=== PATIENT | female | born 1970 | race Caucasian/White ===

== ENCOUNTER 2016-05-25 15:50 | Emergency (ER) | payer BC, OTHER ==
[2016-05-25] MEDS ORDERED: ASPIRIN 81 MG CHEWABLE TABLET PO ONE (16:08)
[2016-05-25] MEDS ORDERED: 0.9 % SODIUM CHLORIDE 1000ML 1,000 ML IV PRN (16:08)
[2016-05-25 16:28] LABS: BASO % 0.5 % (0-6); EOS % 0.8 % (0-6); GRAN % 44.5 % (47-80); HEMATOCRIT 42.8 % (35.0-47.0); HEMOGLOBIN 14.6 gm/dl (11.6-16.0); LYMPH % 44.4 % (16-45); MEAN CELL VOLUME 96.4 fl (81-97); MEAN CORPUSCULAR HEMOGLOBIN 32.9 pg (27-33); MEAN CORPUSCULAR HGB CONC 34.1 g/dl (32-36); MONO % 9.8 % (0-9); PLATELET COUNT 225 K/uL (130-400); RED BLOOD COUNT 4.44 M/uL (3.80-5.40); RED CELL DISTRIBUTION WIDTH 13.4 % (11.5-14.5); WHITE BLOOD COUNT W/O DIFF 7.6 K/uL (4.2-12.2)
[2016-05-25 16:42] LABS: ANION GAP 13.7 (7-16); BLOOD UREA NITROGEN 9 mg/dL (7-17); CARBON DIOXIDE 25.3 mmol/L (22-30); CREATININE 0.8 mg/dL (0.52-1.04); EST GLOMERULAR FILTRATION RATE > 60 ml/min; GLUCOSE,RANDOM 83 mg/dL (70-110)
--- NOTE | 2016-05-25 16:56 | Emergency Department Record ---
History of Present Illness - General Chief Complaint: Chest Pain Stated Complaint: TIGHTNESS IN CHEST AND BACK OF LEGS ARE PURPLE Time Seen by Provider: 05/25/16 16:07 Mode of Arrival: Ambulatory - History of Present Illness Initial Comments: heaviness in her chest comes and goes for 2 days and discoloration of the back of the legs. Pulses in her legs are good and and she has dermography of the posterior legs. Under stress because released from correction. Complaint: Chest pain Onset/Timin -: Week(s) Pain Location: Other Pain Radiation: RUE, LUE Quality: Tightness Consistency: Intermittent Improves With: Nothing Worsens With: Nothing - Related Data Home Medications Medication Instructions Recorded Confirmed Last Taken No Home Med [NO HOME MEDS] 05/25/16 05/25/16 Unknown Allergies Allergy/AdvReac Type Severity Reaction Status Date / Time No Known Drug Allergies Allergy Verified 05/25/16 16:07 Travel Screening - Travel/Exposure Within Last 30 Days Have you traveled within the last 30 days?: No - Travel/Exposure Within Last Year Have you traveled outside the [place] in the last year?: No - Additonal Travel Details Have you been exposed to anyone with a communicable illness?: No - Travel Symptoms Symptom Screening: None Review of Systems Reviewed: No additional complaints except as noted below Constitutional: Reports: As per HPI. Denies: Chills, Fever, Malaise, Night sweats, Weakness, Weight change Eyes: Reports: As per HPI. Denies: Eye discharge, Eye pain, Photophobia, Vision change ENT: Reports: As per HPI. Denies: Congestion, Dental pain, Ear pain, Epistaxis , Hearing loss, Throat pain Respiratory: Reports: As per HPI. Denies: Cough, Dyspnea, Hemoptysis, Stridor, Wheezes Cardiovascular: Reports: As per HPI. Denies: Arrhythmia, Chest pain, Dyspnea on exertion, Edema, Murmurs, Orthopnea, Palpitations, Paroxysmal nocturnal dyspnea, Rheumatic Fever, Syncope Endocrine: Reports: As per HPI. Denies: Fatigue, Heat or cold intolerance, Polydipsia, Polyuria Gastrointestinal: Reports: As per HPI. Denies: Abdominal pain, Constipation, Diarrhea, Hematemesis, Hematochezia, Melena, Nausea, Vomiting Genitourinary: Reports: As per HPI. Denies: Abnormal menses, Discharge, Dyspareunia, Dysuria, Frequency, Hematuria, Incontinence, Retention, Urgency Musculoskeletal: Reports: As per HPI. Denies: Arthralgia, Back pain, Gout, Joint swelling, Myalgia, Neck pain Skin: Reports: As per HPI. Denies: Bruising, Change in color, Change in hair/ nails, Lesions, Pruritus, Rash Neurological: Reports: As per HPI. Denies: Abnormal gait, Confusion, Headache, Numbness, Paresthesias, Seizure, Tingling, Tremors, Vertigo, Weakness Psychiatric: Reports: As per HPI. Denies: Anxiety, Auditory hallucinations, Depression, Homicidal thoughts, Suicidal thoughts, Visual hallucinations Hematological/Lymphatic: Reports: As per HPI. Denies: Anemia, Blood Clots, Easy bleeding, Easy bruising, Swollen glands Past Medical History - SOCIAL HISTORY Smoking Status: Current every day smoker Alcohol Use: None Drug Use: Occassional Drug Use Detail:: Marijuana - RESPIRATORY Hx Respiratory Disorders: No - CARDIOVASCULAR Hx Cardio Disorders: No - NEURO Hx Neuro Disorders: No - GI Hx GI Disorders: No - Hx Genitourinary Disorders: No - ENDOCRINE Hx Endocrine Disorders: No - MUSCULOSKELETAL Hx Musculoskeletal Disorders: No - PSYCH Hx Psych Problems: Yes Hx Depression: Yes - HEMATOLOGY/ONCOLOGY Hx Hematology/Oncology Disorders: No Family Medical History Any Significant Family History?: No Physical Exam - General General Appearance: Alert, Oriented x3, Cooperative, No acute distress - Head Head exam: Normal inspection - Eye Eye exam: Normal appearance, PERRL Pupils: Normal accommodation - ENT ENT exam: Normal exam, Mucous membranes moist, Normal external ear exam, Normal orophraynx, TM's normal bilaterally Ear exam: Normal external inspection. negative: External canal tenderness Nasal Exam: Normal inspection. negative: Discharge, Sinus tenderness Mouth exam: Normal external inspection, Tongue normal Teeth exam: Normal inspection. negative: Dental caries Throat exam: Normal inspection. negative: Tonsillar erythema, Tonsillar exudate - Neck Neck exam: Normal inspection, Full ROM. negative: Tenderness - Respiratory Respiratory exam: Normal lung sounds bilaterally. negative: Respiratory distress - Cardiovascular Cardiovascular Exam: Regular rate, Normal rhythm, Normal heart sounds - GI/Abdominal GI/Abdominal exam: Soft, Normal bowel sounds. negative: Tenderness - Rectal Rectal exam: Deferred - exam: Deferred - Extremities Extremities exam: Normal inspection, Full ROM, Normal capillary refill. negative: Tenderness - Back Back exam: Reports: Normal inspection, Full ROM. Denies: Muscle spasm, Rash noted, Tenderness - Neurological Neurological exam: Alert, Normal gait, Oriented X3, Reflexes normal - Psychiatric Psychiatric exam: Normal affect, Normal mood - Skin Skin exam: Dry, Intact, Normal color, Warm Course Vital Signs 05/25/16 16:08 Temperature 97.7 F Pulse Rate 87 Respiratory 20 Rate Blood Pressure 126/86 Pulse Ox 99 - Reevaluation(s) Reevaluation #1: recommended patient to be transfered to [facility] for cardiology for evaluate and see refused. Advise could and she said no so will have her sign out AMA. Currently no chest pain. Second plan to stay here and she said no. Follow up with Dr. Lovell and he could set up outpatient testing for stress test and venous and arterial dopler of ther legs 05/25/16 17:27 Reevaluation #2: No chest pain now. 05/25/16 17:32 Medical Decision Making - Data Complexity MDM Data: Labs Ordered and/or Reviewed (cardiac labs neg), X-Ray Ordered and/or Reviewed (NSR, No acute changes ) - Lab Data Result diagrams: 05/25/16 16:15 05/25/16 16:15 Lab Results 05/25/16 05/25/16 05/25/16 Range/Units 16:15 16:15 16:15 WBC 7.6 (4.2-12.2) K/uL RBC 4.44 (3.80-5.40) M/uL Hgb 14.6 (11.6-16.0) gm/dl Hct 42.8 (35.0-47.0) % MCV 96.4 (81-97) fl MCH 32.9 (27-33) pg MCHC 34.1 (32-36) g/dl RDW 13.4 (11.5-14.5) % Plt Count 225 (130-400) K/uL MPV 10.0 (7.4-10.4) fl Gran % 44.5 L (47-80) % Lymphocytes % 44.4 (16-45) % Monocytes % 9.8 H (0-9) % Eosinophils % 0.8 (0-6) % Basophils % 0.5 (0-6) % PTT 28.00 (24.5-39.1) SECONDS Sodium 142 (136-145) mmol/L Potassium 4.0 (3.5-5.1) mmol/L Chloride 103 (98-107) mmol/L Carbon Dioxide 25.3 (22-30) mmol/L Anion Gap 13.7 (7-16) BUN 9 (7-17) mg/dL Creatinine 0.8 (0.52-1.04) mg/dL Estimated GFR > 60 ml/min Random Glucose 83 (70-110) mg/dL Calcium 8.8 (8.5-10.1) mg/dL Disposition Clinical Impression: Angina effort, Dermographia Chest pain Qualifiers: Chest pain type: unspecified Qualified Code(s): R07.9 - Chest pain, unspecified Disposition: Home, Self-Care Condition: (2) Stable Instructions: Angina (ED) Additional Instructions: follow up with Dr. Lovell tomorrow . return to ED if worse. tylenol or motrin for pain Forms: Patient Portal Access Time of Disposition: 17:33
[2016-05-25 16:57] LABS: CKMB 0.5 ug/L (0-6)
[2016-05-25 17:02] LABS: TROPONIN I < 0.012 ng/mL (0.00-0.034)
--- NOTE | 2016-05-25 18:39 | Emergency Department Record ---
History of Present Illness - General Chief Complaint: Chest Pain Stated Complaint: TIGHTNESS IN CHEST AND BACK OF LEGS ARE PURPLE Time Seen by Provider: 05/25/16 16:07 Mode of Arrival: Ambulatory - History of Present Illness Onset/Timin -: Week(s) Pain Location: Other Pain Radiation: RUE, LUE Quality: Tightness Consistency: Intermittent Improves With: Nothing Worsens With: Nothing - Related Data Home Medications Medication Instructions Recorded Confirmed Last Taken No Home Med [NO HOME MEDS] 05/25/16 05/25/16 Unknown Allergies Allergy/AdvReac Type Severity Reaction Status Date / Time No Known Drug Allergies Allergy Verified 05/25/16 16:07 Travel Screening - Travel/Exposure Within Last 30 Days Have you traveled within the last 30 days?: No - Travel/Exposure Within Last Year Have you traveled outside the [place] in the last year?: No - Additonal Travel Details Have you been exposed to anyone with a communicable illness?: No - Travel Symptoms Symptom Screening: None Review of Systems Constitutional: Reports: As per HPI. Denies: Chills, Fever, Malaise, Night sweats, Weakness, Weight change Eyes: Reports: As per HPI. Denies: Eye discharge, Eye pain, Photophobia, Vision change ENT: Reports: As per HPI. Denies: Congestion, Dental pain, Ear pain, Epistaxis , Hearing loss, Throat pain Respiratory: Reports: As per HPI. Denies: Cough, Dyspnea, Hemoptysis, Stridor, Wheezes Cardiovascular: Reports: As per HPI. Denies: Arrhythmia, Chest pain, Dyspnea on exertion, Edema, Murmurs, Orthopnea, Palpitations, Paroxysmal nocturnal dyspnea, Rheumatic Fever, Syncope Endocrine: Reports: As per HPI. Denies: Fatigue, Heat or cold intolerance, Polydipsia, Polyuria Gastrointestinal: Reports: As per HPI. Denies: Abdominal pain, Constipation, Diarrhea, Hematemesis, Hematochezia, Melena, Nausea, Vomiting Genitourinary: Reports: As per HPI. Denies: Abnormal menses, Discharge, Dyspareunia, Dysuria, Frequency, Hematuria, Incontinence, Retention, Urgency Musculoskeletal: Reports: As per HPI. Denies: Arthralgia, Back pain, Gout, Joint swelling, Myalgia, Neck pain Skin: Reports: As per HPI. Denies: Bruising, Change in color, Change in hair/ nails, Lesions, Pruritus, Rash Neurological: Reports: As per HPI. Denies: Abnormal gait, Confusion, Headache, Numbness, Paresthesias, Seizure, Tingling, Tremors, Vertigo, Weakness Psychiatric: Reports: As per HPI. Denies: Anxiety, Auditory hallucinations, Depression, Homicidal thoughts, Suicidal thoughts, Visual hallucinations Hematological/Lymphatic: Reports: As per HPI. Denies: Anemia, Blood Clots, Easy bleeding, Easy bruising, Swollen glands Past Medical History - SOCIAL HISTORY Smoking Status: Current every day smoker Alcohol Use: None Drug Use: Occassional Drug Use Detail:: Marijuana - RESPIRATORY Hx Respiratory Disorders: No - CARDIOVASCULAR Hx Cardio Disorders: No - NEURO Hx Neuro Disorders: No - GI Hx GI Disorders: No - Hx Genitourinary Disorders: No - ENDOCRINE Hx Endocrine Disorders: No - MUSCULOSKELETAL Hx Musculoskeletal Disorders: No - PSYCH Hx Psych Problems: Yes Hx Depression: Yes - HEMATOLOGY/ONCOLOGY Hx Hematology/Oncology Disorders: No Family Medical History Any Significant Family History?: No Course Vital Signs 05/25/16 05/25/16 05/25/16 16:08 17:07 18:09 Temperature 97.7 F 98.2 F Pulse Rate 87 Pulse Rate [ 72 78 Pulse Ox Probe] Respiratory 20 20 18 Rate Blood Pressure 126/86 Blood Pressure 107/61 111/67 [Right Arm] Pulse Ox 99 98 99 - Reevaluation(s) Reevaluation #1: patient upset I could not tell her more about her legs and I explained to her she needs a venous dopler and arterial doplers for further evaluation of her legs and those tests are not available at this hospital now. Patient upset and now wants to see another doctor and Dr. Polanco is coming in for evaluation so patient is reregistering for another evaluation. 05/25/16 18:33 05/25/16 18:39 Medical Decision Making - Lab Data Result diagrams: 05/25/16 16:15 05/25/16 16:15 Lab Results 05/25/16 05/25/16 05/25/16 Range/Units 16:15 16:15 16:15 WBC 7.6 (4.2-12.2) K/uL RBC 4.44 (3.80-5.40) M/uL Hgb 14.6 (11.6-16.0) gm/dl Hct 42.8 (35.0-47.0) % MCV 96.4 (81-97) fl MCH 32.9 (27-33) pg MCHC 34.1 (32-36) g/dl RDW 13.4 (11.5-14.5) % Plt Count 225 (130-400) K/uL MPV 10.0 (7.4-10.4) fl Gran % 44.5 L (47-80) % Lymphocytes % 44.4 (16-45) % Monocytes % 9.8 H (0-9) % Eosinophils % 0.8 (0-6) % Basophils % 0.5 (0-6) % PTT 28.00 (24.5-39.1) SECONDS Sodium 142 (136-145) mmol/L Potassium 4.0 (3.5-5.1) mmol/L Chloride 103 (98-107) mmol/L Carbon Dioxide 25.3 (22-30) mmol/L Anion Gap 13.7 (7-16) BUN 9 (7-17) mg/dL Creatinine 0.8 (0.52-1.04) mg/dL Estimated GFR > 60 ml/min Random Glucose 83 (70-110) mg/dL Calcium 8.8 (8.5-10.1) mg/dL CK-MB (CK-2) 0.5 (0-6) ug/L Troponin I < 0.012 (0.00-0.034) ng/mL Disposition Clinical Impression: Angina effort, Dermographia Chest pain Qualifiers: Chest pain type: unspecified Qualified Code(s): R07.9 - Chest pain, unspecified Disposition: Home, Self-Care Condition: (2) Stable Instructions: Angina (ED) Additional Instructions: follow up with Dr. Lovell tomorrow . return to ED if worse. tylenol or motrin for pain Forms: Patient Portal Access
== END 2016-05-25 18:40 | disposition home or self-care (01) ==
LOC: ER 15:50
DX: I20.9 Angina pectoris, unspecified (principal); L50.3 Dermatographic urticaria; F17.210 Nicotine dependence, cigarettes, uncomplicated
CPT/HCPCS: 80048; 82553; 84484; 85025; 85730; 93005; 93010; 99284

== ENCOUNTER 2017-03-24 17:14 | Emergency (ER) | payer SELFPAY ==
[2017-03-24] MEDS ORDERED: DIAZEPAM 5 MG/1 ML TUBX IM ONE (18:43)
[2017-03-24] MEDS ORDERED: HYDROMORPHONE HCL 1 MG/ML SYRINGE IM ONE (18:43)
--- NOTE | 2017-03-24 18:43 | Emergency Department Record ---
History of Present Illness - General Chief complaint: Pain Stated complaint: PAIN IN HIP AND RT LEG Time Seen by Provider: 03/24/17 17:42 Source: Patient Mode of Arrival: Ambulatory Limitations: No limitations - History of Present Illness Initial comments: 46 yo female presents to ED for evaluation of right sided low back pain that radiates down her right lower extremity that began 4-5 days ago. Patient denies injury, twisting, or heavy lifting that m,ay have resulted in her pain symptoms. Patient does however report similar symptoms previously, reports that she has not taken anything for her pain symptoms since her pain symptoms began stating "I'm not a pill popper". Patient denies weakness, numbness over the groin region, or urinary retention symptoms. MD Complaint: Other Onset/Timin -: Days(s) Location: Right, Lower Leg, Other History of Same: Yes Radiation: Proximal Severity scale (1-10): 10 Quality: Aching Consistency: Constant Improves with: Nothing Worsens with: Nothing Associated Symptoms: Denies other symptoms - Related Data Previous Rx's Medication Instructions Recorded Diazepam [Valium] 5 mg PO Q8H PRN #15 03/24/17 Naproxen [Naprosyn] 500 mg PO Q12H #30 tab. 03/24/17 Allergies Allergy/AdvReac Type Severity Reaction Status Date / Time No Known Drug Allergies Allergy Verified 03/24/17 17:52 Travel Screening - Travel/Exposure Within Last 30 Days Have you traveled within the last 30 days?: No Review of Systems Constitutional: Denies: Chills, Fever, Malaise, Night sweats Eyes: Denies: Eye discharge, Eye pain ENT: Denies: Congestion, Ear pain, Epistaxis Respiratory: Denies: Cough, Dyspnea Cardiovascular: Denies: Chest pain, Dyspnea on exertion Endocrine: Denies: Fatigue, Heat or cold intolerance Gastrointestinal: Denies: Abdominal pain, Nausea, Vomiting Genitourinary: Denies: Incontinence, Retention Musculoskeletal: Reports: Back pain. Denies: Gout, Joint swelling Skin: Denies: Bruising, Change in color, Change in hair/nails Neurological: Denies: Abnormal gait, Confusion, Headache, Tingling Psychiatric: Denies: Anxiety Hematological/Lymphatic: Denies: Anemia, Blood Clots Past Medical History - SOCIAL HISTORY Smoking Status: Current every day smoker Alcohol Use: None Drug Use: None - RESPIRATORY Hx Respiratory Disorders: No - CARDIOVASCULAR Hx Cardio Disorders: No - NEURO Hx Neuro Disorders: No - GI Hx GI Disorders: No - Hx Genitourinary Disorders: No - ENDOCRINE Hx Endocrine Disorders: No - MUSCULOSKELETAL Hx Musculoskeletal Disorders: Yes - PSYCH Hx Psych Problems: Yes Hx Depression: Yes - HEMATOLOGY/ONCOLOGY Hx Hematology/Oncology Disorders: No Family Medical History Any Significant Family History?: No Physical Exam - General General Appearance: Alert, Oriented x3, Cooperative, Moderate distress, Other ( tearful on examination) Limitations: No limitations - Head Head exam: Atraumatic, Normocephalic, Normal inspection Head exam detail: negative: Abrasion, Contusion, Marshall's sign, General tenderness, Hematoma, Laceration - Eye Eye exam: Normal appearance. negative: Conjunctival injection, Periorbital swelling, Periorbital tenderness, Scleral icterus - ENT Ear exam: negative: Auricular hematoma, Auricular trauma Nasal Exam: negative: Active bleeding, Discharge, Dried blood, Foreign body Mouth exam: negative: Drooling, Laceration, Muffled voice, Tongue elevation - Neck Neck exam: Normal inspection. negative: Meningismus, Tenderness - Respiratory Respiratory exam: Normal lung sounds bilaterally. negative: Respiratory distress, Rhonchi, Stridor, Wheezes - Cardiovascular Cardiovascular Exam: Regular rate, Normal rhythm, Normal heart sounds - Rectal Rectal exam: Deferred - exam: Deferred - Extremities Extremities exam: Normal inspection. negative: Pedal edema, Tenderness - Back Back exam: Denies: CVA tenderness (R), CVA tenderness (L), Paraspinal tenderness , Rash noted - Neurological Neurological exam: Alert, Oriented X3, Other (Patient has limited right lower extremity effort due to worsening of her back pain symptoms.). negative: Motor sensory deficit - Psychiatric Psychiatric exam: Normal affect, Normal mood - Skin Skin exam: Normal color. negative: Abrasion Type of lesion: negative: abrasion Course Vital Signs 03/24/17 17:50 Temperature 98.1 F Pulse Rate 97 H Respiratory 16 Rate Blood Pressure 132/77 Pulse Ox 98 - Reevaluation(s) Reevaluation #1: 03/24/17 18:49 MDM: On examination, the patient has no clinical evidence for spinal cord compression syndrome, reports a history of previous symptoms, denies recent injury, and patient is < 50 years of age. Images are not felt to be of benefit as a result. Will treat the patient symptomatically with Valium and Naprosyn as she has not taken anything at home for her symptoms over the past 5 days with instructions for follow-up with Dr. Lovell in 3-5 days as directed. Patient agrees with the plan as discussed. Reevaluation #2: 03/24/17 19:20 Patient reports improvement in her pain symptoms, ambulated from ED with steady gait and appears stable for discharge at this time. Disposition Disposition: Discharge Clinical Impression: Sciatica Qualifiers: Laterality: right Qualified Code(s): M54.31 - Sciatica, right side Disposition: Home, Self-Care Condition: (2) Stable Instructions: Sciatica (ED) Additional Instructions: Return to ED if your symptoms worsen or if you have any concerns. Valium and Naprosyn as directed. Follow-up with Dr. Lovell in 3-5 days as directed. Prescriptions: Diazepam [Valium] 5 mg PO Q8H PRN #15 PRN Reason: Pain - Moderate (5-7) Naproxen [Naprosyn] 500 mg PO Q12H #30 tab.dr Forms: Patient Portal Access Time of Disposition: 18:43 Quality - Quality Measures Quality Measures: N/A - Blood Pressure Screening Does Patient Have Any of the Following: No Blood Pressure Classification: Pre-Hypertensive BP Reading Systolic Measurement: 132 Diastolic Measurement: 77 Screening for High Blood Pressure: < Pre-Hypertensive BP, F/U Documented > [ G8950] Pre-Hypertensive Follow-up Interventions: Referral to alternative/primary care provider.
== END 2017-03-24 19:22 | disposition home or self-care (01) ==
LOC: ER 17:14
DX: M54.41 Lumbago with sciatica, right side (principal); M25.551 Pain in right hip
CPT/HCPCS: 99283 ×2; 96372; J1170; J3360

== ENCOUNTER 2018-09-13 14:28 | Emergency (ER) | payer SELFPAY ==
[2018-09-13] MEDS ORDERED: KETOROLAC 60 MG/2 ML VIAL IM STA (14:46)
--- NOTE | 2018-09-13 14:46 | Emergency Department Record ---
History of Present Illness - General Chief Complaint: Back Pain/Injury Stated Complaint: LOWER BACK PAIN Time Seen by Provider: 09/13/18 14:39 Source: Patient Mode of Arrival: Ambulatory Limitations: No limitations - History of Present Illness Initial Comments: 47 yo female presents with back pain. The pain is on the right lower into the buttocks and down the leg. No weakness, numbness or tingling. NO bowel or bladder dysfunction. She denies significant trauma. It started getting dressed. She had similar symptoms 8 months ago that lasted a week. No fevers. MD Complaint: Back pain -: Days(s) (2) Similar Symptoms Previously: Yes Place: Home Radiation: Right leg Quality: Sharp Consistency: Constant Improves With: Immobilization Worsens With: Movement, Walking Context: Bending Associated Symptoms: Denies other symptoms - Related Data Previous Rx's Medication Instructions Recorded Diazepam [Valium] 5 mg PO Q8H #12 tab 09/13/18 Methylprednisolone [Medrol Dose 4 mg PO DAILY #1 tab.ds.pk 09/13/18 Pack] Naproxen [Naprosyn] 500 mg PO BID #30 tablet 09/13/18 Allergies Allergy/AdvReac Type Severity Reaction Status Date / Time No Known Drug Allergies Allergy Verified 09/13/18 14:40 Review of Systems Constitutional: Denies: Chills, Fever, Malaise, Weakness Eyes: Denies: Eye discharge ENT: Denies: Congestion, Throat pain Respiratory: Denies: Cough, Dyspnea Cardiovascular: Denies: Chest pain, Palpitations, Syncope Endocrine: Denies: Fatigue Gastrointestinal: Denies: Abdominal pain, Constipation, Diarrhea, Nausea, Vomiting Genitourinary: Denies: Dysuria, Frequency, Incontinence, Retention, Urgency Musculoskeletal: Reports: Back pain, Myalgia Skin: Denies: Bruising, Change in color, Rash Neurological: Denies: Abnormal gait, Numbness, Paresthesias, Tingling, Tremors, Weakness Psychiatric: Denies: Anxiety Hematological/Lymphatic: Denies: Easy bleeding, Easy bruising Past Medical History - SOCIAL HISTORY Smoking Status: Current every day smoker Drug Use: None - RESPIRATORY Hx Respiratory Disorders: No - CARDIOVASCULAR Hx Cardio Disorders: No - NEURO Hx Neuro Disorders: No - GI Hx GI Disorders: No - Hx Genitourinary Disorders: No - ENDOCRINE Hx Endocrine Disorders: No - MUSCULOSKELETAL Hx Musculoskeletal Disorders: Yes - PSYCH Hx Psych Problems: Yes Hx Depression: Yes - HEMATOLOGY/ONCOLOGY Hx Hematology/Oncology Disorders: No Physical Exam - General General Appearance: Alert, Oriented x3, Cooperative, No acute distress Limitations: No limitations - Head Head exam: Atraumatic, Normal inspection - Eye Eye exam: Normal appearance. negative: Conjunctival injection - ENT ENT exam: Normal exam Ear exam: Normal external inspection Nasal Exam: Normal inspection Mouth exam: Normal external inspection - Neck Neck exam: Normal inspection - GI/Abdominal GI/Abdominal exam: Soft. negative: Tenderness - Rectal Rectal exam: Deferred - exam: Deferred - Extremities Extremities exam: Normal inspection, Full ROM, Normal capillary refill, Other (tender right glutteal). negative: Calf tenderness, Pedal edema Image of Full Body: 1 - tenderness - Back Back exam: Reports: Normal inspection, Paraspinal tenderness, Tenderness, Vertebral tenderness (low lumbar more to the right), Other (pain with leg lift). Denies: CVA tenderness (R), Rash noted - Neurological Neurological exam: Alert, Normal gait, Oriented X3, Reflexes normal. negative: Motor sensory deficit (foot flexion and extension intact) - Psychiatric Psychiatric exam: Normal affect, Normal mood. negative: Agitated, Anxious - Skin Skin exam: Dry, Intact, Normal color, Warm Course - Reevaluation(s) Reevaluation #1: 09/13/18 15:14 The XR was reviewed. Multilevel degenerative changes with disc space narrowing We discussed sciatica, home care, close follow up and reasons to return to the ED Off work the next 2 days as well. Disposition Disposition: Discharge Clinical Impression: Sciatica Disposition: Home, Self-Care Condition: (1) Good Instructions: Sciatica (ED), Low Back Strain (ED) Additional Instructions: Call your doctor for the next available follow up appointment Review this ER visit and the tests performed with your family doctor Return to the ER for a recheck if worse, any new concerns or questions If your pain continues you may require further testing or treatment through your doctor (physical therapy, MRI) Take the prescriptions provided as directed Prescriptions: Methylprednisolone [Medrol Dose Pack] 4 mg PO DAILY #1 tab.ds.pk Naproxen [Naprosyn] 500 mg PO BID #30 tablet Diazepam [Valium] 5 mg PO Q8H #12 tab Forms: Patient Portal Access Time of Disposition: 15:15 Quality - Quality Measures Quality Measures: N/A - Blood Pressure Screening Does Patient Have Any of the Following: No Blood Pressure Classification: Hypertensive Reading Systolic Measurement: 107 Diastolic Measurement: 91 Screening for High Blood Pressure: < Pre-Hypertensive BP, F/U Documented > [G8950] Pre-Hypertensive Follow-up Interventions: Referral to alternative/primary care provider.
--- NOTE | 2018-09-15 23:59 | RADIOLOGY REPORT ---
EXAM: LUMBAR SPINE W/OBLIQUES HISTORY: ACUTE LOWER BACK PAIN RADIATING INTO RIGHT LOWER EXTREMITY FOR TWO DAYS. PAIN BEGAN WHEN SHAKING LEG. TECHNIQUE: AP, lateral, and both oblique views of the lumbar spine. COMPARISON: CT abdomen and pelvis with contrast dated 11/29/2014. FINDINGS: There are five [id number] lumbar-type vertebrae. There is mild levoconvex curvature centered at the L2-L3 level. There is associated straightening of the normal lumbar lordosis. There is mild to moderate disc space narrowing at the L4-L5 level. Mild disc space narrowing is suspected at the L3-L4 and L5-S1 levels. The intervertebral disc heights are otherwise maintained. Mild marginal endplate spurring is noted at the L2-L3, L3-L4, and L4-L5 levels. Minor bilateral facet arthropathy is noted at the lower lumbar levels. Surgical clips project at the level of the right lower quadrant. The sacroiliac joints are maintained. IMPRESSION: 1. NO ACUTE OSSEOUS OR LIGAMENTOUS ABNORMALITY. 2. MILD DEGENERATIVE CHANGES AT THE MID TO LOWER LUMBAR LEVELS, DISCUSSED ABOVE. MILD LEVOCONVEX SCOLIOSIS. JOB NUMBER: [id number] [facility]
== END 2018-09-13 15:55 | disposition home or self-care (01) ==
LOC: ER 14:28
DX: M54.42 Lumbago with sciatica, left side (principal); F17.210 Nicotine dependence, cigarettes, uncomplicated
CPT/HCPCS: 72110; 96372; 99283; 99284; J1885

== ENCOUNTER 2018-12-28 16:10 | Emergency (ER) | payer BC ==
[2018-12-28] MEDS ORDERED: KETOROLAC 30 MG/ML VIAL IM ONE (16:38)
--- NOTE | 2018-12-28 16:48 | Emergency Department Record ---
History of Present Illness - General Chief complaint: Pain Stated complaint: PAIN IN RIGHT HIP AND LEG Time Seen by Provider: 12/28/18 16:20 Source: Patient Mode of Arrival: Ambulatory Limitations: No limitations - History of Present Illness Initial comments: pt states her sciatica is acting up. she lifts heavy parts at work. she has had this off and on for years. it goes down her right leg. she has no numbness. she has no problems with bowel or bladder. MD Complaint: Other Onset/Timin -: Days(s) Location: Right History of Same: Yes Radiation: Distal Severity scale (1-10): 9 Quality: Sharp Consistency: Constant Improves with: Nothing Worsens with: Nothing Associated Symptoms: Denies other symptoms - Related Data Previous Rx's Medication Instructions Recorded Diazepam [Valium] 5 mg PO Q8H #7 tab 12/28/18 Allergies Allergy/AdvReac Type Severity Reaction Status Date / Time No Known Drug Allergies Allergy Unverified 12/28/18 14:56 Travel Screening - Travel/Exposure Within Last 30 Days Have you traveled within the last 30 days?: No Review of Systems Reviewed: No additional complaints except as noted below Constitutional: Reports: As per HPI. Denies: Chills, Fever, Malaise, Night sweats, Weakness, Weight change Eyes: Reports: As per HPI. Denies: Eye discharge, Eye pain, Photophobia, Vision change ENT: Reports: As per HPI. Denies: Congestion, Dental pain, Ear pain, Epistaxis, Hearing loss, Throat pain Respiratory: Reports: As per HPI. Denies: Cough, Dyspnea, Hemoptysis, Stridor, Wheezes Cardiovascular: Reports: As per HPI. Denies: Arrhythmia, Chest pain, Dyspnea on exertion, Edema, Murmurs, Orthopnea, Palpitations, Paroxysmal nocturnal dyspnea, Rheumatic Fever, Syncope Endocrine: Reports: As per HPI. Denies: Fatigue, Heat or cold intolerance, Polydipsia, Polyuria Gastrointestinal: Reports: As per HPI. Denies: Abdominal pain, Constipation, Diarrhea, Hematemesis, Hematochezia, Melena, Nausea, Vomiting Genitourinary: Reports: As per HPI. Denies: Abnormal menses, Discharge, Dyspareunia, Dysuria, Frequency, Hematuria, Incontinence, Retention, Urgency Musculoskeletal: Reports: As per HPI. Denies: Arthralgia, Back pain, Gout, Joint swelling, Myalgia, Neck pain Skin: Reports: As per HPI. Denies: Bruising, Change in color, Change in hair/nails, Lesions, Pruritus, Rash Neurological: Reports: As per HPI. Denies: Abnormal gait, Confusion, Headache, Numbness, Paresthesias, Seizure, Tingling, Tremors, Vertigo, Weakness Psychiatric: Reports: As per HPI. Denies: Anxiety, Auditory hallucinations, Depression, Homicidal thoughts, Suicidal thoughts, Visual hallucinations Hematological/Lymphatic: Reports: As per HPI. Denies: Anemia, Blood Clots, Easy bleeding, Easy bruising, Swollen glands Past Medical History - SOCIAL HISTORY Smoking Status: Current every day smoker - RESPIRATORY Hx Respiratory Disorders: No - CARDIOVASCULAR Hx Cardio Disorders: No - NEURO Hx Neuro Disorders: No - GI Hx GI Disorders: No - Hx Genitourinary Disorders: No - ENDOCRINE Hx Endocrine Disorders: No - MUSCULOSKELETAL Hx Musculoskeletal Disorders: Yes - PSYCH Hx Psych Problems: Yes Hx Depression: Yes - HEMATOLOGY/ONCOLOGY Hx Hematology/Oncology Disorders: No Family Medical History Any Significant Family History?: No Physical Exam - General General Appearance: Alert, Oriented x3, Cooperative, Mild distress - Head Head exam: Normal inspection - Eye Eye exam: Normal appearance, PERRL, EOMI Pupils: Normal accommodation - ENT ENT exam: Normal exam, Mucous membranes moist, Normal external ear exam, Normal orophraynx Ear exam: Normal external inspection. negative: External canal tenderness Nasal Exam: Normal inspection. negative: Discharge, Sinus tenderness Mouth exam: Normal external inspection, Tongue normal Teeth exam: Normal inspection. negative: Dental caries Throat exam: Normal inspection. negative: Tonsillar erythema, Tonsillar exudate - Neck Neck exam: Normal inspection, Full ROM. negative: Tenderness - Respiratory Respiratory exam: Normal lung sounds bilaterally. negative: Respiratory distr ess - Cardiovascular Cardiovascular Exam: Regular rate, Normal rhythm, Normal heart sounds - GI/Abdominal GI/Abdominal exam: Soft, Normal bowel sounds. negative: Tenderness - Rectal Rectal exam: Deferred - exam: Deferred - Extremities Extremities exam: Normal inspection, Full ROM, Normal capillary refill. negative: Tenderness - Back Back exam: Reports: Normal inspection, Full ROM, Tenderness. Denies: Muscle spasm, Rash noted - Neurological Neurological exam: Alert, CN II-XII intact, Normal gait, Oriented X3 - Psychiatric Psychiatric exam: Normal affect, Normal mood - Skin Skin exam: Dry, Intact, Normal color, Warm Course Vital Signs 12/28/18 16:19 Temperature 98.1 F Pulse Rate [ 77 Pulse Ox Probe] Respiratory 16 Rate Blood Pressure 115/76 [Left Arm] Pulse Ox 97 - Reevaluation(s) Reevaluation #1: 12/28/18 16:44 pt ambulated without difficulty, bent over and picked up her keys without difficulty. pt had been at [facility] and came here after because they didnt give her pain pills. it was explained to the pt that we dont give pain pills for chronic pain and that she needs to see her primary care dr for this. pt upset that she is not being given narcotics Disposition Disposition: Discharge Clinical Impression: Sciatica Qualifiers: Laterality: right Qualified Code(s): M54.31 - Sciatica, right side Disposition: Home, Self-Care Condition: (1) Good Instructions: Sciatica (ED), Lumbar Radiculopathy (ED), Piriformis Syndrome (ED), Lower Back Exercises (ED) Additional Instructions: follow up with family doctor. return sooner if worse. use ice and moist heat. no lifting more then 5lbs for 5 days. take naprosyn or motrin with food. Prescriptions: Diazepam [Valium] 5 mg PO Q8H #7 tab Forms: Patient Portal Access, Return to Work/School, Return to Work/School Quality - Quality Measures Quality Measures: N/A - Blood Pressure Screening Does Patient Have Any of the Following: No Blood Pressure Classification: Normal BP Reading Systolic Measurement: 115 Diastolic Measurement: 76 Screening for High Blood Pressure: < Normal BP, F/U Not Required > [G8783]
== END 2018-12-28 17:11 | disposition home or self-care (01) ==
LOC: ER 16:10
DX: M54.31 Sciatica, right side (principal)
CPT/HCPCS: 96372; 99284; J1885